=== PATIENT | male | born 1945 | race Caucasian/White ===

== ENCOUNTER 2018-03-21 17:49 | Emergency (ER) | payer OTHER ==
--- NOTE | 2018-03-21 18:12 | EDPHY ---
H & P Time Seen by Provider: 03/21/18 17:54 HPI/ROS: CHIEF COMPLAINT: combativeness HISTORY OF PRESENT ILLNESS: The patient is a 72-year-old male with a history of dementia who presents emergency department from [facility]. Per staff he became aggressive and combative. He does this behavior intermittently. The patient was without complaints. He denies chest pain or shortness of breath. No abdominal pain. No recent fever chills. The patient feels well. REVIEW OF SYSTEMS: My complete review of systems is negative except as mentioned in the HPI. Past Medical/Surgical History: Includes dementia, hyperlipidemia Social history: Patient is a senior care resident. Smoking Status: Former smoker Physical Exam: 37.7, 148/76, 94, 16, 94% on room air GENERAL: Well-appearing, in no acute distress, alert. HEENT: Eyes normal to inspection, normal pharynx, no signs of dehydration. NECK: No thyromegaly, no lymphadenopathy, supple. RESPIRATORY: Clear to auscultation bilaterally, no rales, rhonchi or wheezing. CVS: Regular rate and rhythm, no rubs, murmurs, or gallops. ABDOMEN: Soft, nontender, nondistended, no organomegaly. BACK: Normal to inspection, no CVA tenderness. SKIN: Normal color, no rash, warm, dry. No pallor. EXTREMITIES: No pedal edema, no calf tenderness, no Homans sign or cords, no joint swelling. NEURO/PSYCH: Alert and oriented x1, normal mood and affect, normal motor sensory exam. No obvious cranial nerve deficit. Constitutional: Initial Vital Signs Temperature (C) 37.7 C 03/21/18 17:55 Heart Rate 94 03/21/18 17:55 Respiratory Rate 16 03/21/18 17:55 Blood Pressure 148/76 H 03/21/18 17:55 O2 Sat (%) 94 03/21/18 17:55 O2 Delivery Mode Room Air Allergies/Adverse Reactions: No Known Allergies Allergy (Unverified 03/21/18 17:54) Home Medications: Medication Instructions Recorded Aspirin 03/21/18 Miralax 17 gm (*) 03/21/18 traZODone 03/21/18 Medical Decision Making ED Course/Re-evaluation: In the emergency department I met the patient on arrival. Patient was without complaints. I discussed the case with the charge nurse who to call from [facility]. He states that this is not a typical behavior for the patient. CBC, chemistry and urine were sent. Patient's CBC, chemistry and UA are unremarkable. I rechecked the patient while here. He was stable. He had no complaints. He is cooperative. Patient will be discharged home. He is given warnings prior to leaving. Differential Diagnosis: My differential includes but is not limited to dementia, urinary tract infection , electrolyte abnormality, sugar abnormality, bacteremia, sepsis, head injury, CVA - Data Points Laboratory Results: Laboratory Results 03/21/18 18:45 03/21/18 18:45 03/21/18 03/21/18 03/21/18 18:45 18:45 18:00 WBC 9.89 10^3/uL H 10^3/uL (3.80-9.50) RBC 4.00 10^6/uL L 10^6/uL (4.40-6.38) Hgb 12.3 g/dL L g/dL (13.7-17.5) Hct 37.0 % L % (40.0-51.0) MCV 92.5 fL fL (81.5-99.8) MCH 30.8 pg pg (27.9-34.1) MCHC 33.2 g/dL g/dL (32.4-36.7) RDW 13.8 % % (11.5-15.2) Plt Count 244 10^3/uL 10^3/uL (150-400) MPV 10.5 fL fL (8.7-11.7) Neut % (Auto) 67.7 % % (39.3-74.2) Lymph % (Auto) 19.9 % % (15.0-45.0) [place] % (Auto) 10.2 % % (4.5-13.0) Eos % (Auto) 1.4 % % (0.6-7.6) Baso % (Auto) 0.5 % % (0.3-1.7) Nucleat RBC Rel Count 0.0 % % (0.0-0.2) Absolute Neuts (auto) 6.69 10^3/uL H 10^3/uL (1.70-6.50) Absolute Lymphs (auto) 1.97 10^3/uL 10^3/uL (1.00-3.00) Absolute Monos (auto) 1.01 10^3/uL H 10^3/uL (0.30-0.80) Absolute Eos (auto) 0.14 10^3/uL 10^3/uL (0.03-0.40) Absolute Basos (auto) 0.05 10^3/uL 10^3/uL (0.02-0.10) Absolute Nucleated RBC 0.00 10^3/uL 10^3/uL (0-0.01) Immature Gran % 0.3 % % (0.0-1.1) Immature Gran # 0.03 10^3/uL 10^3/uL (0.00-0.10) Sodium 138 mEq/L mEq/L (135-145) Potassium 4.2 mEq/L mEq/L (3.3-5.0) Chloride 102 mEq/L mEq/L (97-110) Carbon Dioxide 27 mEq/l mEq/l (22-31) Anion Gap 9 mEq/L mEq/L (8-16) BUN 29 mg/dL H mg/dL (7-23) Creatinine 1.2 mg/dL mg/dL (0.7-1.3) Estimated GFR 59 Glucose 109 mg/dL H mg/dL (70-100) Calcium 9.0 mg/dL mg/dL (8.5-10.4) Urine Color YELLOW Urine Appearance CLEAR Urine pH 5.0 (5.0-7.5) Ur Specific [place] 1.025 (1.002-1.030) Urine Protein 1+ H (NEGATIVE) Urine Ketones NEGATIVE (NEGATIVE) Urine Blood NEGATIVE (NEGATIVE) Urine Nitrate NEGATIVE (NEGATIVE) Urine Bilirubin NEGATIVE (NEGATIVE) Urine Urobilinogen NEGATIVE EU EU (0.2-1.0) Ur Leukocyte Esterase NEGATIVE (NEGATIVE) Urine RBC NONE SEEN /hpf /hpf (0-3) Urine WBC 1-3 /hpf /hpf (0-3) Ur Epithelial Cells TRACE /lpf /lpf (NONE-1+) Urine Mucus TRACE /lpf /lpf (NONE-1+) Urine Glucose NEGATIVE (NEGATIVE) Departure - Departure Disposition: Home, Routine, Self-Care Clinical Impression: Dementia Qualifiers: Dementia type: unspecified type Dementia behavioral disturbance: with behavioral disturbance Qualified Code(s): F03.91 - Unspecified dementia with behavioral disturbance Condition: Good Instructions: Dementia (ED) Additional Instructions: Return with worsening symptoms or any other concerns. Your laboratory studies and urine studies were normal. Follow up with your primary care provider. If you are unable to get a hold of her primary care provider follow up with Dr. Robertson. Referrals: MILTON ROBERTSON [Medical Doctor] - 5-7 days, call for appt.
[2018-03-21 18:56] LABS: PLATELET COUNT 244 10^3/uL (150-400)
[2018-03-21 19:57] VITALS: BP 163/91
== END 2018-03-21 19:57 | disposition home or self-care (01) ==
LOC: EDUNIT#
DX: F03.91 Unspecified dementia, unspecified severity, with behavioral disturbance (principal); E78.5 Hyperlipidemia, unspecified; Z87.891 Personal history of nicotine dependence